=== PATIENT | male | born 1950 | race Caucasian/White ===

== ENCOUNTER 2016-07-26 10:04 | Emergency (ER) | payer BC ==
--- NOTE | 2016-07-26 10:12 | Emergency Department Record ---
History of Present Illness - General Chief Complaint: Fall Injury Stated Complaint: FALL Time Seen by Provider: 07/26/16 10:06 Source: Patient Mode of Arrival: Ambulatory Limitations: No limitations - History of Present Illness Initial Comments: 66 yo male presents with a fall. He was going down into his basement around 4 am. He tripped and hit his forehead and neck. He was seen in the [facility] care. He is on Plavix so he was sent to the ED. He does have some headache. No nausea, dizziness, vomiting. He does have some neck pain. No numbness, tingling, weakness, or extremity pain. No chest or abdominal pain. No pain with walking. NO LOC. No confusion. No vision changes. PCP is Dr Morley. Cardiology Lindsay MCCALL Complaint: Fall -: Hour(s) (6) Fall From: Down stairs (#) When Fall Occurred: 4-6 hours [employer] Fall Witnessed: No Place Fall Occurred: Home Loss of Consciousness: None Prolonged Down Time?: No Symptoms Prior to Fall: None Location: Head, Neck Severity: Moderate Quality: Aching Context: Tripped/slipped Associated Symptoms: Headache, Neck pain - Jovana Coma Scale Eye Response: (4) Open spontaneously Motor Response: (6) Obeys commands Verbal Response: (5) Oriented Jovana Total: 15 - Related Data Home Medications Medication Instructions Recorded Confirmed Last Taken Aspirin Chewable 81 mg PO DAILY 10/04/13 07/26/16 1 Day Ago ~07/25/16 Atenolol [Tenormin] 100 mg PO DAILY 10/04/13 07/26/16 1 Day Ago ~07/25/16 Ferrous Gluconate [Iron] 65 mg PO DAILY 10/04/13 07/26/16 1 Day Ago ~07/25/16 Isosorbide Mononitrate [Imdur] 30 mg PO DAILY 10/04/13 07/26/16 1 Day Ago ~07/25/16 Meloxicam [Mobic] 15 mg PO DAILY 10/04/13 07/26/16 1 Day Ago ~07/25/16 Tamsulosin HCl [Flomax] 0.8 mg PO DAILY 10/04/13 07/26/16 1 Day Ago ~07/25/16 Bupropion HCl [Wellbutrin Xl] 300 mg PO DAILY 10/11/13 07/26/16 1 Day Ago ~07/25/16 Clopidogrel Bisulfate [Plavix] 75 mg PO DAILY 10/11/13 07/26/16 1 Day Ago ~07/25/16 Duloxetine HCl [Cymbalta] 60 mg PO DAILY 10/11/13 07/26/16 1 Day Ago ~07/25/16 Lamotrigine [Lamictal] 150 mg PO DAILY 10/11/13 07/26/16 1 Day Ago ~07/25/16 Melatonin 5 mg PO QHS 07/14/14 07/26/16 1 Day Ago ~07/25/16 Allergies Allergy/AdvReac Type Severity Reaction Status Date / Time No Known Drug Allergies Allergy Verified 07/26/16 10:11 Review of Systems Constitutional: Denies: Chills, Fever, Weakness Eyes: Denies: Eye discharge ENT: Denies: Congestion, Throat pain Respiratory: Denies: Cough Cardiovascular: Denies: Chest pain, Palpitations, Syncope Endocrine: Denies: Fatigue Gastrointestinal: Denies: Abdominal pain, Diarrhea, Nausea, Vomiting Genitourinary: Denies: Dysuria, Frequency, Hematuria Musculoskeletal: Reports: Arthralgia, Neck pain. Denies: Back pain, Joint swelling, Myalgia Skin: Denies: Bruising, Change in color, Rash Neurological: Reports: Headache. Denies: Abnormal gait, Confusion, Numbness, Seizure, Tingling, Tremors, Vertigo, Weakness Psychiatric: Denies: Anxiety Hematological/Lymphatic: Denies: Blood Clots, Easy bleeding, Easy bruising, Swollen glands Past Medical History - SOCIAL HISTORY Smoking Status: Never smoker - RESPIRATORY Hx Respiratory Disorders: No - CARDIOVASCULAR Hx Cardio Disorders: Yes Hx Cardiac Cath: Yes (Stents X2) Hx Hypertension: Yes - NEURO Hx Neuro Disorders: Yes Comment:: menigioma - GI Hx GI Disorders: No Hx Abdominal Pain: No - Hx Genitourinary Disorders: Yes Hx Kidney Stones: Yes - ENDOCRINE Hx Endocrine Disorders: No Hx Diabetes: No Hx Thyroid Disease: No - MUSCULOSKELETAL Hx Musculoskeletal Disorders: Yes Hx Arthritis: Yes - PSYCH Hx Psych Problems: Yes Hx Depression: Yes - HEMATOLOGY/ONCOLOGY Hx Hematology/Oncology Disorders: Yes Hx Anemia: Yes (states r/t gastric bypass 1984) Hx Blood Transfusions: Yes Hx Blood Transfusion Reaction: No Family Medical History Hx Cancer: Brother/Sister Hx Heart Disease: Father, Mother, Brother/Sister, Grandparents Hx Stroke: Grandparents Physical Exam - General General Appearance: Alert, Oriented x3, Cooperative, No acute distress Limitations: No limitations - Head Head exam: negative: Atraumatic, Normal inspection Head exam detail: Abrasion Image of Face/Head: 1 - superficail abrasions and slight forehead contusion - Eye Eye exam: Normal appearance, PERRL, EOMI. negative: Conjunctival injection, Periorbital swelling Pupils: Normal accommodation. negative: Irregular, Unequal - ENT ENT exam: Normal exam, Mucous membranes moist Ear exam: Normal external inspection Nasal Exam: Normal inspection Mouth exam: Normal external inspection Teeth exam: Normal inspection Throat exam: Normal inspection - Neck Neck exam: Normal inspection, Full ROM. negative: Lymphadenopathy, Tenderness - Respiratory Respiratory exam: Normal lung sounds bilaterally. negative: Respiratory distress, Rhonchi, Stridor, Wheezes - Cardiovascular Cardiovascular Exam: Regular rate, Normal rhythm, Normal heart sounds Peripheral Pulses: 2+: Radial (R), Radial (L) - GI/Abdominal GI/Abdominal exam: Soft. negative: Tenderness - Rectal Rectal exam: Deferred - exam: Deferred - Extremities Extremities exam: Normal inspection, Full ROM, Normal capillary refill. negative: Pedal edema, Tenderness - Back Back exam: Reports: Normal inspection, Full ROM. Denies: CVA tenderness (R), CVA tenderness (L), Muscle spasm, Rash noted, Tenderness - Neurological Neurological exam: Alert, CN II-XII intact, Normal gait, Oriented X3, Reflexes normal. negative: Altered - Psychiatric Psychiatric exam: Normal affect, Normal mood - Skin Skin exam: Abrasion, Dry, Intact, Warm Course - Reevaluation(s) Reevaluation #1: The patient presents on Plavix after a fall hitting his head CT scan of the head and cervical spine ordered He denies any other injuries. 07/26/16 10:11 Reevaluation #2: No acute injury on the HCT. The likely meningioma is unchanged from prior studies. The XR demonstrated advancing cervical degenerative changes Cervical CT is pending. 07/26/16 11:10 Reevaluation #3: I discussed the CT scan of the cervical with Dr Aguilar of radiology at superior articular facet of C6. It is non displaced. 07/26/16 11:31 Reevaluation #4: [facility] contacted for Dr Pena or director digital communications spine surgery. The patient has been seen by Dr Pena in the past. 07/26/16 11:41 Reevaluation #5: I SW Dr Hanna and And Dr Alonso of [facility] ED They recommend transfer to the ED for further trauma evaluation and spine consultation. Dr Kearney agrees with transfer. 07/26/16 11:47 Medical Decision Making - Lab Data Result diagrams: 07/26/16 12:00 07/26/16 12:00 Disposition Disposition: Transfer Clinical Impression: Contusion of head Qualifiers: Encounter type: initial encounter Contusion of head detail: unspecified part of head Qualified Code(s): S00.93XA - Contusion of unspecified part of head, initial encounter Concussion Qualifiers: Encounter type: initial encounter Loss of consciousness presence/duration: without LOC Qualified Code(s): S06.0X0A - Concussion without loss of consciousness, initial encounter Cervical strain, acute Qualifiers: Encounter type: initial encounter Qualified Code(s): S16.1XXA - Strain of muscle, fascia and tendon at neck level, initial encounter Cervical spine fracture Qualifiers: Encounter type: initial encounter Cervical vertebra fracture level: C6 Fracture alignment: nondisplaced Disposition: Acute Care Hospital Transfer Transfer To: [facility] Reason For Transfer: C6 facet fracture Accepting Physician: Gavin Time Discussed w/Accepting Physician: 11:51 Condition: (2) Stable Instructions: Concussion (ED) Additional Instructions: Rest and avoid over activity the next several days Return to the ED if you have headaches, dizziness, nausea or any concerns Call your doctor for close follow up this week Forms: Patient Portal Access Time of Disposition: 11:51
[2016-07-26] MEDS ORDERED: ACETAMINOPHEN 500 MG TABLET PO ONE (11:40)
[2016-07-26 12:15] LABS: BASO % 0.6 % (0-6); EOS % 1.3 % (0-6); GRAN % 76.9 % (47-80); HEMOGLOBIN 13.8 gm/dl (14.0-18.0); LYMPH % 14.5 % (16-45); MEAN CELL VOLUME 89.3 fl (81-97); MEAN CORPUSCULAR HEMOGLOBIN 30.8 pg (27-33); MEAN CORPUSCULAR HGB CONC 34.5 g/dl (32-36); MEAN PLATELET VOLUME 9.6 fl (7.4-10.4); MONO % 6.7 % (0-9); PLATELET COUNT 201 K/uL (130-400); RED BLOOD COUNT 4.48 M/uL (4.40-5.70); RED CELL DISTRIBUTION WIDTH 13.8 % (11.5-14.5); WHITE BLOOD COUNT W/O DIFF 8.2 K/uL (4.2-12.2)
[2016-07-26] MEDS ORDERED: MORPHINE SULFATE 5 MG/ML PFS IVP ONE (12:28)
[2016-07-26 12:29] LABS: INR 0.95; LACTIC ACID 1.2 mmol/L (0.7-2.1); PARTIAL THROMBOPLASTIN TIME 27.9 SECONDS (24.5-39.1); PROTHROMBIN TIME (PATIENT) 10.7 SECONDS (9.5-12.1)
[2016-07-26 12:32] LABS: BLOOD UREA NITROGEN 22 mg/dL (9-20); CREATININE 1.3 mg/dL (0.66-1.25); EST GLOMERULAR FILTRATION RATE 59 ml/min; GLUCOSE,RANDOM 111 mg/dL (70-110)
[2016-07-26 12:33] LABS: ALB/GLOB RATIO 1.7 (1.1-1.8); ALBUMIN 4.5 gm/dL (3.5-5.0); ALKALINE PHOSPHATASE 143 U/L (38-126); ALT/SGPT 45 U/L (21-72); AST/SGOT 43 U/L (17-59); TOTAL PROTEIN 7.2 gm/dL (6.3-8.2)
[2016-07-26 12:46] LABS: TROPONIN I < 0.012 ng/mL (0.00-0.034)
== END 2016-07-26 12:44 | disposition short-term general hospital (02) ==
LOC: ER 10:04
DX: S12.501A Unspecified nondisplaced fracture of sixth cervical vertebra, initial encounter for closed fracture (principal); S06.0X0A Concussion without loss of consciousness, initial encounter; S16.1XXA Strain of muscle, fascia and tendon at neck level, initial encounter; R51 Headache; W10.9XXA Fall (on) (from) unspecified stairs and steps, initial encounter; Y92.008 Other place in unspecified non-institutional (private) residence as the place of occurrence of the external cause; I10 Essential (primary) hypertension; Z95.5 Presence of coronary angioplasty implant and graft; Z79.02 Long term (current) use of antithrombotics/antiplatelets
CPT/HCPCS: 70450; 72125; 80053; 83605; 84484; 85025; 85610; 85730; 96374; 99285

== ENCOUNTER 2019-02-01 19:11 | Emergency (ER) | payer MEDICARE, BC ==
--- NOTE | 2019-02-01 19:33 | Emergency Department Record ---
History of Present Illness - General Chief Complaint: Chest Pain Stated Complaint: PAIN Time Seen by Provider: 02/01/19 19:26 Source: Patient Mode of Arrival: Ambulatory Limitations: No limitations - History of Present Illness Initial Comments: The patient is here due to a 2 hour hx of angina which occurred at home. The pain was retrosternal and nonradiating. It was not associated with nausea, vomiting, or SOB and the pain seemed to be similar to the patient's past angina pain. He did take 3 SL NTG's which did significantly improve the pain and he al so took a full dose ASA. The pain now is almost gone. The patient did just have a nuclear Stress test by Dr. Montoya 2 days ago here but the result is not available. He does have 2 cardiac stents at this time. MD Complaint: Chest pain Onset/Timin -: Hour(s) Onset: During rest Pain Location: Substernal Severity scale (1-10): 2 Improves With: Nitroglycerin - Related Data Home Medications Medication Instructions Recorded Confirmed Last Taken Gabapentin [Neurontin] 600 mg PO BID 02/01/19 02/01/19 Unknown Hydrochlorothiazide [Hctz] 1 tab PO DAILY 02/01/19 02/01/19 Unknown Allergies Allergy/AdvReac Type Severity Reaction Status Date / Time diphenhydramine AdvReac JOINT ACHES Verified 02/01/19 19:37 [From Benadryl] morphine AdvReac NAUSEA Verified 02/01/19 19:37 Review of Systems Constitutional: Denies: Chills, Fever Eyes: Denies: Eye discharge ENT: Denies: Congestion Respiratory: Denies: Cough Cardiovascular: Reports: Chest pain. Denies: Arrhythmia, Dyspnea on exertion Endocrine: Denies: Fatigue Gastrointestinal: Denies: Nausea Genitourinary: Denies: Dysuria Musculoskeletal: Denies: Arthralgia Skin: Denies: Bruising Past Medical History - SOCIAL HISTORY Smoking Status: Never smoker - RESPIRATORY Hx Respiratory Disorders: Yes Hx Pneumonia: Yes (long ago) Hx Sleep Apnea: Yes Hx of CPAP: Yes (occasional use) - CARDIOVASCULAR Hx Cardio Disorders: Yes Hx Cardiac Cath: Yes (Stents X2) Hx Chest Pain: Yes (5 yrs ago) Hx Hypertension: Yes (meds good control) Hx Coronary Stent: Yes (x2 and angioplasty) Hx Percutaneous Transluminal Coronary Angioplasty (PTCA): Yes - NEURO Hx Neuro Disorders: Yes Hx Neuropathy: Yes (rt shoulder and arm weaker than other) Hx Weakness: Yes (rt shoulder and arm x 2 yrs) Comment:: "a rock in my head"-meningioma since age 42 - GI Hx GI Disorders: No - Hx Genitourinary Disorders: Yes Hx Kidney Stones: Yes (3 yrs ago) - ENDOCRINE Hx Endocrine Disorders: No - MUSCULOSKELETAL Hx Musculoskeletal Disorders: Yes Hx Arthritis: Yes (all over) - PSYCH Hx Psych Problems: Yes Hx Depression: Yes (better now) - HEMATOLOGY/ONCOLOGY Hx Hematology/Oncology Disorders: Yes Hx Anemia: Yes (states r/t gastric bypass 1984) 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 negative: Tonsillar erythema, Tonsillar exudate - Neck Neck exam: Normal inspection, Full ROM. negative: Tenderness - Respiratory Respiratory exam: Normal lung sounds bilaterally. negative: Respiratory distress - Cardiovascular Cardiovascular Exam: Regular rate, Normal rhythm, Normal heart sounds. negative: Diastolic murmur, Systolic murmur - GI/Abdominal GI/Abdominal exam: Soft, Normal bowel sounds. negative: Tenderness - Extremities Extremities exam: Normal inspection, Full ROM, Normal capillary refill. negative: Tenderness - Back Back exam: Reports: Normal inspection - Neurological Neurological exam: Alert, Normal gait. negative: Abnormal gait, Motor sensory deficit - Psychiatric Psychiatric exam: negative: Anxious - Skin Skin exam: negative: Rash Course Vital Signs 02/01/19 19:19 Temperature 97.6 F Pulse Rate [ 80 Pulse Ox Probe] Respiratory 24 Rate Blood Pressure 109/67 [Left Arm] Pulse Ox 97 - Reevaluation(s) Reevaluation #1: The patient is doing very well at this time and is pain free. He denies any MORGAN or SOB or sweating. I did discus the plan with him and the need for transfer due to the hx of stents and now Angina with an indeterminant Trop. The patient understands and would [place] [facility] 02/01/19 20:43 Reevaluation #2: I did discuss the case with Dr. Byrne ([facility] who did agree with the plan to transfer. I also did discuss the case with Dr. Schneider who did accept the patient [place] [facility] [place] 02/01/19 21:06 Reevaluation #3: 2nd EKG: NSR at 77, Neg ST-T changes. Normal EKG. 02/01/19 21:07 Reevaluation #4: The patient is doing very well at this time. He is pain free with normal vitals and a neg 2nd EKG. 02/01/19 21:09 Medical Decision Making - Data Complexity MDM Data: Labs Ordered and/or Reviewed, EKG Ordered and/or Reviewed - Lab Data Result diagrams: 02/01/19 20:00 02/01/19 20:00 - EKG Data -: EKG Interpreted by Me EKG: No Acute Changes, Normal EKG Disposition Disposition: Transfer Clinical Impression: Chest pain Qualifiers: Chest pain type: unspecified Qualified Code(s): R07.9 - Chest pain, unspecified Disposition: Acute Care Hospital Transfer [place] [facility] For Transfer: Cardiology Accepting Physician: Daryn. Time Discussed w/Accepting Physician: 21:08 Forms: Patient Portal Access Time of Disposition: 21:08 Quality - Quality Measures Quality Measures: N/A - Blood Pressure Screening View Details: Yes Does Patient Have Any of the Following: No Blood Pressure Classification: Normal BP Reading Systolic Measurement: 106 Diastolic Measurement: 64 Screening for High Blood Pressure: < Normal BP, F/U Not Required > [[id number]]
[2019-02-01] MEDS ORDERED: ONDANSETRON HCL IV 4 MG/2 ML VIAL IVP ONE (19:43)
[2019-02-01] MEDS ORDERED: HYDROMORPHONE HCL 2 MG/ML VIAL IVP ONE (19:44)
[2019-02-01 20:11] LABS: ABSOLUTE NEUTROPHIL COUNT 6.33; BASO % 1.3 % (0-6); EOS % 1.7 % (0-6); GRAN % 72.1 % (47-80); HEMATOCRIT 42.8 % (42.0-52.0); HEMOGLOBIN 13.9 gm/dl (14.0-18.0); LYMPH % 17.3 % (16-45); MEAN CELL VOLUME 90.9 fl (81-97); MEAN CORPUSCULAR HEMOGLOBIN 29.5 pg (27-33); MEAN CORPUSCULAR HGB CONC 32.5 g/dl (32-36); MEAN PLATELET VOLUME 9.4 fl (7.4-10.4); MONO % 7.6 % (0-9); PLATELET COUNT 310 K/uL (130-400); RED BLOOD COUNT 4.71 M/uL (4.40-5.70); RED CELL DISTRIBUTION WIDTH 14.2 % (11.5-14.5); WHITE BLOOD COUNT W/O DIFF 8.8 K/uL (4.2-12.2)
[2019-02-01 20:20] LABS: PARTIAL THROMBOPLASTIN TIME 26.8 SECONDS (24.5-39.1)
[2019-02-01 20:21] LABS: BILIRUBIN,TOTAL 0.2 mg/dL (0.2-1.0); CREATININE 1.7 mg/dL (0.7-1.2); TOTAL PROTEIN 7.3 g/dL (6.6-8.7)
[2019-02-01 20:26] LABS: ALB/GLOB RATIO 1.5 (1.1-1.8); ALBUMIN 4.4 g/dL (4.0-5.0)
[2019-02-01] MEDS ORDERED: HEPARIN SODIUM 1000 UNIT/1 ML 10ML VIAL IVP ONE (20:34)
[2019-02-01] MEDS ORDERED: HEPARIN SODIUM/D5W 25,000 UNITS/500 ML BAG IV SCH (20:45)
== END 2019-02-01 22:19 | disposition short-term general hospital (02) ==
LOC: ER 19:11
DX: I20.9 Angina pectoris, unspecified (principal); R79.89 Other specified abnormal findings of blood chemistry; I10 Essential (primary) hypertension; Z95.5 Presence of coronary angioplasty implant and graft
CPT/HCPCS: 99285 ×2; 96365; 96375; 85025; 85730; 85610; 80053; 84484; 93005; 93010; J2405; J1170